=== PATIENT | female | born 1990 | race Caucasian/White ===

== ENCOUNTER 2018-10-02 06:55 | Day surgery (SDC) | payer MEDICAID ==
[2018-09-29 11:02] LABS: BASOPHILS 0.2 % (0-2); EOSINOPHILS 0.9 % (0-7); HEMATOCRIT 45.3 % (36.0-48.0); HEMOGLOBIN 15.7 g/dL (12-16); IMMATURE GRANULOCYTES 0.2 % (0-5); LYMPHOCYTES 16.7 % (15-50); MCH 32.7 pg (26.0-34.0); MCHC 34.7 g/dL (31.0-37.0); MCV 94.4 fL (80.0-100.0); MEAN PLATELET VOLUME 9.6 fL (7.4-10.4); PLATELET COUNT 316 10x3/uL (130-400); RDW 12.6 % (11.5-14.5); WBC 11.2 10x3/uL (4.8-10.8)
[2018-09-29 11:12] LABS: CALC OSMOLALITY 276 mosm/kg (275-300); CALCIUM 9.7 mg/dL (8.5-10.1); CARBON DIOXIDE 28.6 mmol/L (21.0-32.0); CHLORIDE - SERUM 101 mmol/L (98-107); CREATININE - SERUM 0.7 mg/dL (0.6-1.3); GLUCOSE 96 mg/dL (74-106); POTASSIUM - SERUM 3.8 mmol/L (3.5-5.1); SODIUM 139 mmol/L (136-145); UREA NITROGEN 9 mg/dL (7-18); eGFR NON AFRICAN AMERICAN > 90 mL/min (90-120)
[2018-10-02] VITALS (11 sets, daily range): BP systolic 113–140; BP diastolic 59–88; BMI 32.1
[~2018-10-02] VITALS: Ht 160 cm; Wt 82.3 kg
--- NOTE | ~2018-10-02 | OP ---
PATIENT NAME: PAU LUCIANO MEDICAL RECORD: [id number] :90 LOCATION:D.OPS ADMISSION DATE: SURGEON: ADRIANA PIPER MD DATE OF OPERATION: 10/02/2018 PREOPERATIVE DIAGNOSES: 1. Menorrhagia. 2. Pelvic pain. POSTOPERATIVE DIAGNOSES: 1. Menorrhagia. 2. Pelvic pain. 3. Suspect adenomyosis. PROCEDURES: 1. Diagnostic laparoscopy. 2. Laparoscopic subtotal hysterectomy. 3. Bilateral salpingectomy. SURGEON: Adriana Piper MD ANESTHESIOLOGIST: Dirk Sandoval MD ANESTHESIA: General anesthetic with endotracheal intubation. FINDINGS: Uterus is enlarged and boggy. Tubes were interrupted bilaterally and ovaries were unremarkable. What was visualized of the abdominal anatomy was unremarkable. SPECIMENS REMOVED: Uterus without cervix and bilateral tubes. SPECIMEN DISPOSITION: Pathology. ESTIMATED BLOOD LOSS: Minimal. FLUIDS: 1700 cc of lactated Ringer's. URINE OUTPUT: 400 cc clear urine. COMPLICATIONS: None. DRAINS: [id number], discontinued upon arrival to the floor. INDICATIONS: The patient is a 28-year-old multiparous female with painful heavy periods and dyspareunia. The patient has been tried on conservative therapy without results and desires definitive treatment. The patient understands the unique risks, benefits and limitations of a subtotal hysterectomy as these have been described at the preoperative appointment. DESCRIPTION OF PROCEDURE: After informed consent was assured, the patient was taken to the operating room, anesthetic was obtained. With the patient supine on the table, she is now prepped and draped. Incision was made in the umbilicus to accommodate a 5-mm trocar. Pneumoperitoneum was developed. The patient is now placed in Trendelenburg position and accessory ports were placed in the right lower quadrant and left lower quadrant. Through the right lower quadrant OPERATIVE REPORT [id number] PAU LUCIANO port, a coagulation cutter was inserted. Through the left, a grasper was used to elevate the tube. Using the coagulation and cutting device, the tube was removed from its attachments to the adnexa. This dissection was carried over the uteroovarian ligament across the round ligament and down the anterior leaf of the broad ligament. The bladder flap was developed to the midline. Posterior leaf was opened and the vessels at the right side skeletonized, compressed, and coagulated. Attention was now directed to the left side. Through the right port, a grasper was inserted and the left tube was elevated. From the left side, a coagulation cutter was inserted and the tubes removed from its attachments to the adnexa. Dissection was carried out over the round ligaments and uteroovarian ligaments. The broad ligament was opened and the bladder flap now fully developed. Posterior leaf was opened and the vessels of the left side skeletonized, compressed, coagulated, and . This has been performed at the level of the internal os, matching the right side. Using a Harmonic scalpel, the uterus is now removed from its attachment to the cervix. This reverse cone begins on the patient's left side and concludes on the right. The endocervical canal was now cauterized. PlasmaSORD now replaced with 10-12 port in the right lower quadrant and the uterus was removed in several strips. Small portion of the uterus is in the cul-de-sac and this is easily removed with grasper. Pelvis was copiously irrigated and irrigant removed and again inspection reveals no debris or uterine tissue in the cul-de-sac. Interceed was now placed over the cervical stump. Once this was placed into position, the pneumoperitoneum was released as the accessory ports were removed and the primary port is now removed. All skin sites closed with a subcuticular stitch and Dermabond applied. Sponge, lap, and needle counts correct times 2. TRANSINT:[id number] Voice Confirmation ID: [id number] DOCUMENT ID: [id number] ADRIANA PIPER MD at 1639 CC: [id number] DICTATION DATE: 10/02/18 1318 FLOORING SALESPERSON: 10/02/18 1444 [facility] 10/03/18 [facility] [address] [place] [address]
[~2018-10-02 06:55] MED LIST: BUPROPION HCL200 M1 PO; BUSPAR5 MG PO
[2018-10-02] MEDS ORDERED: COLACE50 MG/5 ML PO (08:16)
[2018-10-02 08:55] LABS: HCG URINE NEGATIVE (NEGATIVE)
[2018-10-03 03:37] VITALS: BP 108/53
[2018-10-03 07:29] VITALS: BP 105/53
[2018-10-03] MEDS ORDERED: IBUPROFEN800 MG PO (08:09)
[2018-10-03] MEDS ORDERED: PERCOCET 7.5/321 TAB PO (08:10)
[2018-10-03 09:08] VITALS: Ht 160 cm; Wt 82.3 kg
== END 2018-10-03 09:15 | disposition home or self-care (01) ==
LOC: D.OPS 06:55 → D.PAN 09:15 → D.OPS 09:30 → D.PAN 09:30 → D.LD 13:30 → D.OPS 10-03 09:15
PROVIDERS: Obstetrics & Gynecology
DX: N92.0 Excessive and frequent menstruation with regular cycle (principal); N83.8 Other noninflammatory disorders of ovary, fallopian tube and broad ligament; N94.10 Unspecified dyspareunia; Z01.812 Encounter for preprocedural laboratory examination